=== PATIENT | female | born 1950 | race Caucasian/White ===

== ENCOUNTER 2019-05-11 08:14 | Observation (INO) | payer MEDICARE ==
[~2019-05-11] VITALS: Ht 174 cm; Wt 104.9 kg
[~2019-05-11 08:14] MED LIST: OMEP40CA42 PO
[2019-05-11] MEDS ORDERED: GABAPENTIN 300 MG CAPSULE PO ONE (09:00)
[2019-05-11] MEDS ORDERED: LIDOCAINE-MPF 1%, 2ML INFIL ONE (09:00)
[2019-05-11] MEDS ORDERED: ACETAMINOPHEN 500 MG TABLET PO ONE (09:00)
[2019-05-11] MEDS: LACTATED RINGERS 1,000 ML IV SCH ×3 (09:06→16:19)
[2019-05-11 09:16] VITALS: BP 151/91
[2019-05-11] MEDS ORDERED: MIDAZOLAM 1 MG/ML, 2ML ONE (09:42)
[2019-05-11] MEDS ORDERED: FENTANYL PF 250 MCG/5ML ONE (09:43)
[2019-05-11] MEDS ORDERED: BUPIVACAINE/PF-EPI 0.5% 1:200K ONE (09:59)
[2019-05-11] MEDS ORDERED: PROMETHAZINE 25 MG/ML, 1ML IV PRN (10:00)
[2019-05-11] MEDS ORDERED: OXYcodone 5 MG/5 ML ORAL.SOL UDC PO PRN (10:00)
[2019-05-11] MEDS ORDERED: MEPERIDINE/PF 25MG/ML,1ML IVPush PRN (10:00)
[2019-05-11] MEDS ORDERED: HALOPERIDOL 5 MG/ML IV PRN (10:00)
[2019-05-11] MEDS ORDERED: hydrALAzine 20 MG/ML, 1ML IV PRN ×2 (10:00→12:00)
[2019-05-11] MEDS ORDERED: LABETALOL 5MG/ML, 20ML IV PRN (10:00)
[2019-05-11] MEDS ORDERED: HYDROmorphone 1 MG/ML, 1ML INJ IVPush PRN (10:00)
[2019-05-11] MEDS ORDERED: BUPIVACAINE/PF-EPI 0.5% 1:200K INFIL ONE (10:32)
[2019-05-11] MEDS ORDERED: CEFAZOLIN 1,000 MG ONE (11:39)
[2019-05-11] MEDS ORDERED: PROPOFOL 10 MG/ML, 20ML ONE (11:39)
[2019-05-11] MEDS ORDERED: GLYCOPYRROLATE 0.2MG/1ML, 5ML ONE (11:39)
[2019-05-11] MEDS ORDERED: ONDANSETRON 2MG/ML, 2ML ONE (11:39)
[2019-05-11] MEDS ORDERED: ROCURONIUM 10MG/ML,5ML ONE (11:39)
[2019-05-11] MEDS ORDERED: SUCCINYLCHOLINE 20 MG/ML, 10ML ONE (11:39)
[2019-05-11] MEDS ORDERED: NEOSTIGMINE 1 MG/ML, 10ML ONE (11:39)
[2019-05-11] MEDS ORDERED: DEXAMETHASONE 4 MG/ML, 1ML ONE (11:39)
[2019-05-11] MEDS ORDERED: ONDANSETRON 2MG/ML, 2ML IVPush PRN (12:00)
[2019-05-11] MEDS ORDERED: PROMETHAZINE 25 MG/ML, 1ML IM PRN (12:00)
[2019-05-11] MEDS ORDERED: ENALAPRILAT 1.25 MG/ML, 2ML IV PRN (12:00)
[2019-05-11] MEDS ORDERED: morphine SULFATE 10 MG/ML, 1ML IV PRN (12:00)
[2019-05-11] MEDS ORDERED: LORazepam 2 MG/ML, 1ML IV PRN (12:00)
[2019-05-11] MEDS ORDERED: PROMETHAZINE 12.5 MG SUPP PR PRN (12:00)
[2019-05-11] MEDS ORDERED: DIPHENHYDRAMINE 50 MG/ML, 1ML IV PRN (12:00)
[2019-05-11] MEDS ORDERED: FENTANYL PF 100 MCG/2ML ONE (12:34)
[2019-05-11] MEDS ORDERED: OXYcodone 5 MG/5 ML ORAL.SOL UDC ONE (12:34)
[2019-05-11] MEDS: FENTANYL PF 100 MCG/2ML IV PRN ×2 (12:38→12:45)
[2019-05-11] MEDS ORDERED: hydrALAzine 20 MG/ML, 1ML ONE (13:01)
[2019-05-11] MEDS ORDERED: KETOROLAC 30 MG/1 ML ONE (13:02)
[2019-05-11] MEDS: KETOROLAC 30 MG/1 ML IV PRN (13:11)
[2019-05-11] MEDS: HYDROcodone/APAP 7.5-325MG/15ML UDC PO PRN ×2 (19:00→23:54)
[2019-05-11 20:32] VITALS: BP 150/89
[2019-05-11] MEDS: FAMOTIDINE 20 MG/2 ML IV SCH (20:36)
[2019-05-11 23:52] VITALS: BP 139/83
[2019-05-12 03:36] VITALS: BP 132/85
[2019-05-12 06:54] VITALS: BP 136/85
[2019-05-12] MEDS: LACTATED RINGERS 1,000 ML IV SCH ×2 (08:01)
[2019-05-12] MEDS: KETOROLAC 30 MG/1 ML IV PRN ×2 (08:08→14:02)
[2019-05-12] MEDS: FAMOTIDINE 20 MG/2 ML IV SCH (08:08)
[2019-05-12] MEDS ORDERED: ENOXAPARIN 40 MG/0.4 ML SQ SCH (09:00)
[2019-05-12] MEDS ORDERED: HYDR15SO3 PO (09:08)
[2019-05-12 13:45] VITALS: BP 153/83
== END 2019-05-12 14:35 | disposition home or self-care (01) ==
LOC: OUT 08:14 → 4NE 13:56 → OUT 22:59 → 4NE 23:00 → DCLOUNGE 05-12 14:31
PROVIDERS: ADMIT Thoracic Surgery (Cardiothoracic Vascular Surgery); ATTEND Thoracic Surgery (Cardiothoracic Vascular Surgery)
DX: K44.9 Diaphragmatic hernia without obstruction or gangrene (principal); K21.9 Gastro-esophageal reflux disease without esophagitis; R13.10 Dysphagia, unspecified; K22.2 Esophageal obstruction; Z79.899 Other long term (current) drug therapy
CPT/HCPCS: 43280; 71045; 93005; 96372; 96374; 96375; 96376; C1781; G0378; J0330; J0360; J0690; J1100; J1650; J1885; J2250; J2270; J2405; J2704; J2710; J3010; J3490; J7120